=== PATIENT | male | born 2000 | race Two or more races ===

== ENCOUNTER 2023-09-01 22:32 | Inpatient (IN) | payer OTHER ==
[~2023-09-01] VITALS: Ht 167.6 cm; Wt 74.2 kg
[2023-09-02 00:05] VITALS: PULSE 109; RESP 27; O2SAT 93
[2023-09-02] MEDS: SODIUM CHLORIDE 0.9% 1,000 ML IV ONE (00:29)
[2023-09-02 00:31] LABS: Basophils # (auto) 0 10 ^3/uL (0-0.2); Basophils % (auto) 0.2 % (0.0-2.0); Eosinophils # (auto) 0 10 ^3/uL (0-0.8); Eosinophils % (auto) 0.3 % (0.0-7.0); Hematocrit 51.1 % (41.0-53.0); Hemoglobin 17.4 g/dL (13.5-17.5); Lymphocytes # (auto) 1.3 10 ^3/uL (0.4-5.4); Lymphocytes % (auto) 13.1 % (10.0-50.0); Mean Corpuscular Hgb Conc. 34.1 g/dL (32.0-36.0); Mean Corpuscular Volume 87.8 fL (80.0-100.0); Monocytes % (auto) 9.8 % (0.0-12.0); Neutrophils # (auto) 7.8 10 ^3/uL (1.6-8.6); Neutrophils % (auto) 76.6 % (37.0-80.0); Nucleated Red Blood Cells % 0.1 %; Red Blood Cells 5.82 10^6/uL (4.5-5.90); Red Cell Distribution Width 13.4 % (11.8-14.3); White Blood Cell 10.2 10^3/uL (4.4-10.8)
[2023-09-02 00:52] LABS: Alanine Aminotransferase 16 U/L (7-40); Albumin 4.4 g/dL (3.2-4.8); Alkaline Phosphatase 76 U/L (46-116); Anion Gap 11 (5-15); Aspartate Aminotransferase < 8 U/L (13-40); BUN/Creatinine Ratio 6.2 (10.0-20.0); Bilirubin, Total 0.7 mg/dL (0.2-1.0); Blood Urea Nitrogen 6 mg/dL (9-23); Calcium 9.6 mg/dL (8.7-10.4); Carbon Dioxide 20 mmol/L (20-30); Chloride 107 mmol/L (98-107); Glucose 104 mg/dL (74-106); Magnesium 1.9 mg/dL (1.6-2.6); Potassium 3.6 mmol/L (3.5-5.1); Sodium 138 mmol/L (136-145); Total Protein 6.8 g/dL (5.7-8.2)
[2023-09-02 00:54] LABS: Free T3 3.15 pg/mL (2.3-4.2)
[2023-09-02 00:55] LABS: Free T4 (Free Thyroxine) 0.98 ng/dL (0.89-1.76)
[2023-09-02] MEDS ORDERED: MORPHINE SULFATE INJ 2 MG/ml SYRG IV PRN (06:30)
[2023-09-02] MEDS ORDERED: ACETAMINOPHEN 325 MG TAB PO PRN (06:30)
[2023-09-02] MEDS ORDERED: NITROGLYCERIN 0.4 MG SL TAB SL PRN (06:30)
[2023-09-02] MEDS ORDERED: HYDROcodone-ACET 5/325MG TAB PO PRN (06:30)
[2023-09-02] MEDS: SODIUM CHLORIDE 0.9% 1,000 ML IV SCH (06:51)
[2023-09-02 08:56] VITALS: BP 103/74; PULSE 95; RESP 16; TEMP 97.6; O2SAT 99
[2023-09-02] MEDS: ASCORBIC ACID 500 MG TAB PO SCH (09:17)
[2023-09-02] MEDS: ZINC SULFATE 220mg CAP or TAB PO SCH (09:17)
[2023-09-02] MEDS: MULTIPLE VITAMIN TAB PO SCH (09:17)
[2023-09-02] MEDS: ONDANSETRON HCL 4 MG/2 ML VIAL IV PRN (09:18)
[2023-09-02 11:51] VITALS: BP 106/65; PULSE 71; RESP 16; TEMP 98.2; O2SAT 96
[2023-09-02 15:54] VITALS: BP 111/62; PULSE 68; RESP 16; TEMP 98.3; O2SAT 97
[2023-09-02 16:15] VITALS: BP 98/46; PULSE 108; RESP 22; TEMP 98.1; O2SAT 95
== END 2023-09-02 18:33 | disposition home or self-care (01) | DRG 249 ==
LOC: ER 22:32 → TELE 09-02 06:20 → TELE-EAST 09-02 08:06
PROVIDERS: ADMIT Internal Medicine; ATTEND Internal Medicine
DX: A08.4 Viral intestinal infection, unspecified (principal); R00.0 Tachycardia, unspecified
CPT/HCPCS: 36415; 71045; 80053; 83735; 84439; 84443; 84481; 84484; 85025; 85379; 93005; 96360; G0378; J2405